=== PATIENT | female | born 1995 | race Caucasian/White ===

== ENCOUNTER 2019-04-04 08:50 | Observation (INO) | payer MEDICAID ==
[2019-04-04] MEDS ORDERED: PREN-145 OR (09:27)
[2019-04-04 10:27] LABS: Basophils # (auto) 0.1 uL; Basophils % (auto) 0.6 % (0.0-2.0); Eosinophils # (auto) 0.3 uL; Eosinophils % (auto) 1.3 % (0.0-7.0); Hematocrit 35.1 % (36.0-46.0); Hemoglobin 11.7 g/dL (12.2-16.2); Lymphocytes # (auto) 3.2 uL; Lymphocytes % (auto) 16.4 % (10.0-50.0); Mean Corpuscular Hemoglobin 30.4 pg (28.0-32.0); Mean Corpuscular Hgb Conc. 33.2 g/dL (32.0-36.0); Mean Corpuscular Volume 91.5 fL (80.0-100.0); Monocytes # (auto) 1.4 uL; Monocytes % (auto) 6.9 % (0.0-12.0); Neutrophils # (auto) 14.7 uL; Neutrophils % (auto) 74.8 % (37.0-80.0); Nucleated Red Blood Cells % 0.1 %; Platelet Count (auto) 256 10^3/uL (140-450); Red Blood Cells 3.84 10^6/uL (4.0-5.20); Red Cell Distribution Width 14.3 % (11.8-14.3); White Blood Cell 19.7 10^3/uL (4.4-10.8)
[2019-04-04 10:46] LABS: Urine Bacteria NONE SEEN /hpf (None Seen); Urine Blood Negative /uL (Negative); Urine Hyaline Cast FEW /lpf (0 - 2); Urine Specific Gravity 1.016 (1.001-1.035); Urine WBC None Seen /hpf (0 - 5)
[2019-04-04 10:52] LABS: Albumin 2.4 g/dL (3.4-5.0); Calcium 8.1 mg/dL (8.5-10.1)
[2019-04-04 10:55] LABS: BUN/Creatinine Ratio 8.5; Bilirubin, Total 0.2 mg/dL (0.2-1.0); Total Protein 5.7 g/dL (6.4-8.2)
[2019-04-04 11:21] LABS: Alcohol, Urine < 3.0 mg/dL (0-5); Amphetamine Screen, Urine POSITIVE (NEGATIVE); Barbiturate Scree,Urine NEGATIVE (NEGATIVE); Benzodiazephine Screen, Urine NEGATIVE (NEGATIVE); Cannabinoid Screen, Urine NEGATIVE (NEGATIVE); Cocaine Screen, Urine NEGATIVE (NEGATIVE); Opiate Scree,Urine NEGATIVE (NEGATIVE); Phencyclidine Screen, Urine NEGATIVE (NEGATIVE)
[2019-04-05 06:06] LABS: Rubella Antibodies, IgG 1.95 index (Immune >0.99)
[2019-04-05 07:05] LABS: RPR Non Reactive (Non Reactive)
== END 2019-04-04 12:05 | disposition home or self-care (01) | DRG 566 ==
LOC: LDRP 08:50
PROVIDERS: ADMIT Obstetrics & Gynecology; ATTEND Obstetrics & Gynecology
DX: O26.893 Other specified pregnancy related conditions, third trimester (principal); N89.8 Other specified noninflammatory disorders of vagina; R10.9 Unspecified abdominal pain; Z3A.33 33 weeks gestation of pregnancy
CPT/HCPCS: 36415; 59025; 76805; 80053; 80307; 81001; 81002; 84112; 85025; 86592; 86703; 86762; 86850; 86900; 86901; 87340; G0378

== ENCOUNTER 2020-07-09 16:20 | Observation (INO) | payer MEDICAID ==
[~2020-07-09] VITALS: Ht 162.6 cm; Wt 61.2 kg
[~2020-07-09 16:20] MED LIST: PREN-145 OR
[2020-07-09] MEDS ORDERED: TERBUTALINE SULFATE 1 MG/ML 1ML VIAL SC ONE (17:30)
== END 2020-07-09 18:10 | disposition home or self-care (01) ==
LOC: LDRP 16:20
PROVIDERS: ADMIT Specialist; ATTEND Specialist
DX: O60.03 Preterm labor without delivery, third trimester (principal); O26.893 Other specified pregnancy related conditions, third trimester; N89.8 Other specified noninflammatory disorders of vagina; Z3A.33 33 weeks gestation of pregnancy
CPT/HCPCS: 59025; G0378; J3105

== ENCOUNTER 2020-07-16 16:40 | Observation (INO) | payer MEDICAID ==
[~2020-07-16] VITALS: Ht 152.4 cm; Wt 59.0 kg
[2020-07-16] MEDS ORDERED: TERBUTALINE SULFATE 1 MG/ML 1ML VIAL SC ONE ×3 (17:09→21:00)
[2020-07-16] MEDS: TERBUTALINE SULFATE 1 MG/ML 1ML VIAL SC SCH ×3 (17:10→18:54)
[2020-07-16] MEDS ORDERED: BETAMETHASONE ACET (6MG/ML) 5ML VIAL IM ONE (17:15)
[2020-07-16 18:01] LABS: Urine Amorphous Crystal FEW /hpf (None Seen); Urine Bacteria NONE SEEN /hpf (None Seen); Urine Blood Negative /uL (Negative); Urine Mucus FEW (None Seen); Urine Specific Gravity 1.021 (1.001-1.035); Urine WBC 1 /hpf (0 - 5)
[2020-07-16 18:07] LABS: Amphetamine Screen, Urine POSITIVE (NEGATIVE); Barbiturate Scree,Urine NEGATIVE (NEGATIVE); Benzodiazephine Screen, Urine NEGATIVE (NEGATIVE); Cannabinoid Screen, Urine NEGATIVE (NEGATIVE); Cocaine Screen, Urine NEGATIVE (NEGATIVE); Opiate Scree,Urine NEGATIVE (NEGATIVE); Phencyclidine Screen, Urine NEGATIVE (NEGATIVE)
[2020-07-16] MEDS ORDERED: MAGNESIUM SULFATE 100 ML IV ONE (19:45)
[2020-07-16] MEDS ORDERED: MAGNESIUM SULFATE 40MG/ML 1,000 ML IV SCH (19:45)
[2020-07-16 20:23] LABS: Basophils # (auto) 0.1 10 ^3/uL (0-0.2); Basophils % (auto) 0.3 % (0.0-2.0); Eosinophils # (auto) 0.1 10 ^3/uL (0-0.8); Eosinophils % (auto) 0.4 % (0.0-7.0); Hemoglobin 13.3 g/dL (12.2-16.2); Lymphocytes # (auto) 2.1 10 ^3/uL (0.4-5.4); Lymphocytes % (auto) 8.9 % (10.0-50.0); Mean Corpuscular Hemoglobin 30.8 pg (28.0-32.0); Mean Corpuscular Hgb Conc. 34.1 g/dL (32.0-36.0); Mean Corpuscular Volume 90.2 fL (80.0-100.0); Monocytes # (auto) 0.5 10 ^3/uL (0-1.3); Neutrophils # (auto) 20.6 10 ^3/uL (1.6-8.6); Neutrophils % (auto) 88.4 % (37.0-80.0); Platelet Count (auto) 254 10^3/uL (140-450); Red Blood Cells 4.32 10^6/uL (4.0-5.20); Red Cell Distribution Width 14.5 % (11.8-14.3); White Blood Cell 23.3 10^3/uL (4.4-10.8)
[2020-07-16 20:35] LABS: Albumin 2.9 g/dL (3.4-5.0); Calcium 8.4 mg/dL (8.5-10.1)
[2020-07-16 20:41] LABS: BUN/Creatinine Ratio 11.5; Bilirubin, Total 0.2 mg/dL (0.2-1.0); Total Protein 6.9 g/dL (6.4-8.2)
[2020-07-16] MEDS ORDERED: AMPICILLIN SOD 2GM INJ 2 GM in SODIUM CHL 0.9% 100 ML IV ONE (20:45)
[2020-07-16] MEDS ORDERED: LACTATED RINGER'S 1,000 ML IV SCH (20:45)
[2020-07-16 20:50] LABS: Potassium 2.7 mmol/L (3.5-5.1)
[2020-07-16] MEDS ORDERED: POTASSIUM CHL 20 Meq TABLET PO ONE (21:00)
[2020-07-16] MEDS ORDERED: BUTORPHANOL TARTRATE 2 MG/1 ML VIAL IV PRN (21:00)
[2020-07-16 21:06] LABS: INR 0.92 (0.9-1.15); Partial Thromboplastin Time 26.5 sec (23.0-31.2)
[2020-07-18 04:06] LABS: RPR Non Reactive (Non Reactive)
== END 2020-07-16 21:40 | disposition short-term general hospital (02) ==
LOC: LDRP 16:40
PROVIDERS: ADMIT Obstetrics & Gynecology; ATTEND Obstetrics & Gynecology
DX: O60.03 Preterm labor without delivery, third trimester (principal); Z20.828 Contact with and (suspected) exposure to other viral communicable diseases; O99.283 Endocrine, nutritional and metabolic diseases complicating pregnancy, third trimester; E87.6 Hypokalemia; Z3A.34 34 weeks gestation of pregnancy
CPT/HCPCS: 36415; 59025; 76805; 80053; 80307; 81001; 81002; 84112; 84550; 85025; 85610; 85730; 86592; 86850; 86900; 86901; 87426; 94760; 96361; 96365; 96366; 96368; 96372; 96375; G0378; J0290; J0595; J0702; J3105; J3475; 96360; 96374

== ENCOUNTER 2021-08-19 12:39 | Emergency (ER) | payer MEDICAID ==
[~2021-08-19] VITALS: Ht 162.6 cm; Wt 59.0 kg
[2021-08-19 13:21] LABS: Urine Bacteria FEW /hpf (None Seen); Urine Blood 2+ /uL (Negative); Urine Hyaline Cast FEW /lpf (0 - 2); Urine Mucus FEW (None Seen); Urine Specific Gravity 1.018 (1.001-1.035); Urine Sperm PRESENT /hpf (None Seen); Urine WBC 49 /hpf (0 - 5)
[2021-08-19 14:14] VITALS: BP 103/60
[2021-08-19] MEDS ORDERED: LIDOCAINE 2%HCL (LOCAL ANESTH.) INJ 20ML MDV ONE (14:41)
[2021-08-19] MEDS ORDERED: cefTRIAXone SOD 1,000 MG VL IM ONE (14:45)
[2021-08-19] MEDS ORDERED: ACETAMINOPHEN 500 MG TAB PO ONE (14:45)
[2021-08-19] MEDS ORDERED: LIDOCAINE 2%HCL (LOCAL ANESTH.) INJ 10ml MDV IJ ONE (15:00)
== END 2021-08-19 14:55 | disposition home or self-care (01) ==
LOC: ER 12:39
DX: N39.0 Urinary tract infection, site not specified (principal); R51.9 Headache, unspecified; F17.210 Nicotine dependence, cigarettes, uncomplicated; Z20.822 Contact with and (suspected) exposure to COVID-19
CPT/HCPCS: 36415; 81001; 87426; 96372; 99283; J0696; J2001